=== PATIENT | female | born 1995 | race Hispanic/Latino ===

== ENCOUNTER 2021-01-12 20:13 | Emergency (ER) | payer OTHER, SELFPAY ==
[2021-01-12 20:21] VITALS: BP 111/65; PULSE 107; RESP 15; TEMP 36.6; O2SAT 97
[2021-01-12 20:42] LABS: Basophils Percent Auto 0.3 % (0.2-1.2); Eosinophils Absolute Auto 0.1 K/mm3 (0-0.3); Eosinophils Percent Auto 0.4 % (0-4.4); Hematocrit 32.2 % (37.0-47.0); Hemoglobin 10.3 g/dL (12.0-15.0); Immature Granulocyte Absolute 0.11 K/mm3 (0.00-0.031); Immature Granulocyte Percent A 0.8 % (0-0.5); Lymphocytes Percent Auto 16.3 % (18.3-44.2); Mean Corpuscular Hemoglobin 23.9 pg (26-34); Mean Corpuscular Volume 74.7 fl (80-100); Mean Platelet Volume 9.2 fl (7.4-10.4); Monocytes Absolute Auto 0.8 K/mm3 (0.1-0.6); Monocytes Percent Auto 5.9 % (2.6-8.5); Neutrophils Absolute Auto 10.3 K/mm3 (1.3-6.7); Neutrophils Percent Auto 76.3 % (45.5-73.1); Platelet Count Result 287 k/mm3 (150-375); Red Blood Count 4.31 M/mm3 (4.2-5.4); Red Cell Distribution Width 20.6 % (11.5-14.5); White Blood Count 13.5 K/mm3 (4.5-10.0)
[2021-01-12 20:54] LABS: Alanine Aminotransferase 18 U/L (4-35); Albumin Level 3.9 g/dL (3.5-5.1); Alkaline Phosphatase 81 U/L (38-126); Anion Gap 7 mmol/L (8-16); Aspartate Amino Transferase 31 U/L (14-36); Bilirubin,Total 0.2 mg/dL (0.2-1.3); Blood Urea Nitrogen 13 mg/dL (7-17); Calcium 9.1 mg/dL (8.4-10.2); Carbon Dioxide 19 mmol/L (22-30); Chloride 109 mmol/L (98-107); Estimated CRCL calculation 173 ml/min; Estimated Glomerular Filt Rate > 60; Glucose 104 mg/dL (65-105); Lipase 159 U/L (23-300); Potassium 3.4 mmol/L (3.4-5.0); Sodium 135 mmol/L (137-145)
[2021-01-12] MEDS: METOCLOPRAMIDE HCL INJ 10 MG/2 ML VIAL IV PUSH (22:10)
[2021-01-12] MEDS: SODIUM CHLORIDE 0.9% IV 1,000 ML 999 ML IV CONT (22:10)
[2021-01-12] MEDS: diphenhydrAMINE HCl INJ 50 MG/ML VIAL IV PUSH (22:10)
--- NOTE | 2021-01-12 23:08 | ED.GENADULT ---
HPI - General Adult General Chief complaint: Abdominal Pain Stated complaint: 17 weeks gestation - abd cramping Time Seen by Provider: 01/12/21 21:22 History of Present Illness HPI narrative: Patient is a 25-year-old female presents to emergency department with chief complaint of headache nausea and abdominal cramping. Patient reports she is currently 17 weeks saw her OB today for blood work and a urine test and was told that she had a urinary tract infection patient was given a prescription for Macrobid but had not eaten all day and started having a headache. Related Data Home Medications Medication Instructions Recorded Confirmed docosahexaenoic acid 200 mg capsule mg PO 12/10/20 01/01/21 Allergies Allergy/AdvReac Type Severity Reaction Status Date / Time No Known Allergies Allergy Unverified 01/12/21 20:21 Review of Systems Review of Systems: Narrative: A 10 system review of systems was completed on the patient and is negative except for what is stated in the HPI. Nursing and ancillary documentation was reviewed. [facility] Social History Social History Smoking status: Never smoker Alcohol intake: never Substance use: never Gender identity (if verbalized by the patient): Female Exam Narrative: Exam Narrative: GENERAL: Well-appearing, well-nourished, and in no acute distress. HEAD: Normocephalic, atraumatic. EYES: PERRLA and EOMI. ENT: Nares clear, no rhinorrhea or epistaxis. Mucous membranes moist. NECK: Supple. CHEST: Clear to auscultation. No respiratory distress. HEART: Regular rate and rhythm. No murmur heard. Normal peripheral pulses. ABDOMEN: Soft, nontender, nondistended, normal active bowel sounds. EXTREMITIES: Normal range of motion. No edema. SKIN: Warm, dry, no rash. NEURO: No focal deficits. Alert and oriented x3. PSYCH: Normal mood and affect. Course Course Emergency Course: Patient received IV Reglan Benadryl and IV fluids and had resolution of her symptoms. Vital Signs Vital signs: Vital Signs Temperature 36.6 C 01/12/21 20:21 Pulse Rate 107 H 01/12/21 20:21 Respiratory Rate 15 01/12/21 20:21 Blood Pressure 111/65 01/12/21 20:21 Pulse Oximetry 97 01/12/21 20:21 Temperature 36.6 C 01/12/21 20:21 Pulse Rate 107 H 01/12/21 20:21 Respiratory Rate 15 01/12/21 20:21 Blood Pressure 111/65 01/12/21 20:21 Pulse Oximetry 97 01/12/21 20:21 Medical Decision Making Vital Signs Vital Signs: Vital Signs Temperature 36.6 C 01/12/21 20:21 Pulse Rate 107 H 01/12/21 20:21 Respiratory Rate 15 01/12/21 20:21 Blood Pressure 111/65 01/12/21 20:21 Pulse Oximetry 97 01/12/21 20:21 Temperature 36.6 C 01/12/21 20:21 Pulse Rate 107 H 01/12/21 20:21 Respiratory Rate 15 01/12/21 20:21 Blood Pressure 111/65 01/12/21 20:21 Pulse Oximetry 97 01/12/21 20:21 Lab Data Result diagrams: 01/12/21 20:34 01/12/21 20:34 Labs: Lab Results 01/12/21 01/12/21 Range/Units 20:34 20:34 WBC 13.5 H (4.5-10.0) K/mm3 RBC 4.31 (4.2-5.4) M/mm3 Hgb 10.3 L (12.0-15.0) g/dL Hct 32.2 L (37.0-47.0) % MCV 74.7 L (80-100) fl MCH 23.9 L (26-34) pg MCHC 32.0 (32-36) g/dl RDW 20.6 H (11.5-14.5) % Plt Count 287 (150-375) k/mm3 MPV 9.2 (7.4-10.4) fl Immature Gran % (Auto) 0.8 H (0-0.5) % Neut % (Auto) 76.3 H (45.5-73.1) % Lymph % (Auto) 16.3 L (18.3-44.2) % [place] % (Auto) 5.9 (2.6-8.5) % Eos % (Auto) 0.4 (0-4.4) % Baso % (Auto) 0.3 (0.2-1.2) % Lymph # (Auto) 2.20 (0.9-3.2) K/mm3 [place] # (Auto) 0.8 H (0.1-0.6) K/mm3 Eos # (Auto) 0.1 (0-0.3) K/mm3 Baso # (Auto) 0.0 (0.0-0.1) K/mm3 Abs Immat Gran (auto) 0.11 H (0.00-0.031) K/mm3 Absolute Neuts (auto) 10.3 H (1.3-6.7) K/mm3 Absolute Nucleated RBC 0.0 (0.0-0.012) K/mm3 Nucleated RBC % 0.0 (0.0-0.2) % Sodium
[2021-01-12 23:26] VITALS: BP 112/64; PULSE 87; RESP 16; TEMP 36.9; O2SAT 100
== END 2021-01-12 23:27 | disposition home or self-care (01) ==
PROVIDERS: Emergency Medicine; Emergency Provider Emergency Medicine; PCP Internal Medicine
DX: R51.9 Headache, unspecified (principal)
CPT/HCPCS: 36415; 80053; 83690; 85025; 96361; 96374; 96375; 99284; J1200; J2765; J7030

== ENCOUNTER 2021-01-19 11:07 | Outpatient (CLI) | payer OTHER, SELFPAY ==
--- NOTE | ~2021-01-19 | US_ITS ---
EXAMINATION: US OB /maternal detail DATE: 01/19/2021 12:13 INDICATION: anatomic survey. TECHNIQUE: Real-time ultrasound of the pelvis was performed. COMPARISON: Ultrasound 11/20/2020 FINDINGS: There is a single living fetus in vertex presentation. The placenta is fundal and posterior, 11.8 cm from the cervix. heart rate is 155 beats per minute (bpm). The amniotic fluid index is 10.3 cm , which is normal. The following biometric data were obtained: Biparietal diameter (BPD): 4.4 cm; head circumference (HC): 15.2 cm; abdominal circumference (AC): 13 .2 cm; femur length (FL): 3.1 cm. These measurements are concordant. Estimated weight is 270 g +/- 40 g, which correlates with 80th percentile when 06/19/21 is used as estimated date of delivery. As single measurements, these parameters are each equal to the following estimated gestational ages: BPD: 19 weeks 3 days. HC: 18 weeks 2 days. AC: 18 weeks 5 days. FL: 19 weeks 4 days. estimated gestational age based solely on measurements from this exam is 19 weeks 0 days +/- 1 weeks 2 days. The cerebral ventricles, cerebellum, cisterna magna, nuchal fold, lip, and visualized portions of the spine are normal. The heart is normal. The diaphragm, stomach, kidneys, and bladder are normal. Ther e are two umbilical arteries to yield a 3-vessel cord. The cord insertion is normal. IMPRESSION: 1. Single living fetus in vertex presentation. 2. Estimated weight is 270 g +/- 40 g, which correlates with 80th percentile when 06/19/21 is u sed as estimated date of delivery. 3. Normal anatomic survey. Reviewed, dictated and finalized at location [facility]. IMPRESSION: 1. Single living fetus in vertex presentation. 2. Estimated weight is 270 g +/- 40 g, which correlates with 80th percen tile when 06/19/21 is used as estimated date of delivery. 3. Normal anatomic survey.
== END 2021-01-19 11:08 | disposition home or self-care (01) ==
PROVIDERS: PCP Internal Medicine; Visit Provider Obstetrics & Gynecology
DX: Z36.89 Encounter for other specified antenatal screening (principal); Z3A.19 19 weeks gestation of pregnancy
CPT/HCPCS: 76805

== ENCOUNTER 2021-06-03 21:04 | Inpatient (IN) | payer OTHER, SELFPAY ==
[2021-06-03 21:45] VITALS: BP 108/74; PULSE 85
[2021-06-03 22:00] VITALS: BP 101/68; PULSE 80; TEMP 36.4
[2021-06-03 22:02] LABS: Basophils Percent Auto 0.5 % (0.2-1.2); Eosinophils Absolute Auto 0.1 K/mm3 (0-0.3); Eosinophils Percent Auto 1.1 % (0-4.4); Hematocrit 34.4 % (37.0-47.0); Hemoglobin 11.6 g/dL (12.0-15.0); Immature Granulocyte Absolute 0.05 K/mm3 (0.00-0.031); Immature Granulocyte Percent A 0.6 % (0-0.5); Lymphocytes Percent Auto 29.5 % (18.3-44.2); Mean Corpuscular HGB Conc 33.7 g/dl (32-36); Mean Corpuscular Hemoglobin 29.2 pg (26-34); Mean Corpuscular Volume 86.6 fl (80-100); Mean Platelet Volume 10.6 fl (7.4-10.4); Monocytes Absolute Auto 0.6 K/mm3 (0.1-0.6); Monocytes Percent Auto 6.5 % (2.6-8.5); Neutrophils Absolute Auto 5.3 K/mm3 (1.3-6.7); Neutrophils Percent Auto 61.8 % (45.5-73.1); Platelet Count Result 249 k/mm3 (150-375); Red Blood Count 3.97 M/mm3 (4.2-5.4); Red Cell Distribution Width 14.6 % (11.5-14.5); White Blood Count 8.5 K/mm3 (4.5-10.0)
[2021-06-03 22:16] VITALS: BP 107/71; PULSE 68
[2021-06-03 23:30] VITALS: TEMP 36.6
[2021-06-04] VITALS (72 sets, daily range): BP systolic 84–169; BP diastolic 45–112; PULSE 57–102; TEMP 36.2–36.8; O2SAT 99–100; BMI 33.3
--- NOTE | 2021-06-04 00:54 | LDADM ---
This patient, David Puckett, was admitted to Labor/Delivery/Recovery 105 on 06/03/21 at 21:04. Plans for labor, pain management and were discussed with patient. Patient/family oriented to hospital policies and general routines including ID bracelet, bed and alarms, visiting hours, pain management, procedures, bathroom and other care routines, personal items, smoking policy, room service/diet and guest tray routines, security routines, and visiting hours. Patient/Family are encouraged to report perceived risks to care and to ask questions if they do not understand what they are told or what they should do. See OBIX for further documentation.
[2021-06-04] MEDS: OXYTOCIN 30 UNITS/NS 500 ML 30 UNITS/500 ML BAG 6 UNITS IV CONT (01:12)
[2021-06-04] MEDS: LACTATED RINGERS 1,000 ML 125 ML IV CONT ×3 (01:12→19:23)
--- NOTE | 2021-06-04 03:51 | WPDANESEPP ---
Anes - Eval Pre Procedure Procedure: Labor epidural Date/Time: 06/04/21 03:51 Surgeon: Woo Preop Diagnosis: Abd pain with contractions Pre Op Diagnosis: SROM Patient Data Age: 26 Gender: F Height: Weight: Last Vital Signs Temp 98.1 F 06/04/21 03:00 Pulse 61 06/04/21 03:45 BP 104/67 06/04/21 03:45 Allergies Allergy/AdvReac Type Severity Reaction Status Date / Time No Known Allergies Allergy Verified 06/02/21 14:01 Home Medications Medication Instructions Recorded Confirmed Type docosahexaenoic acid 200 mg capsule mg PO 12/10/20 01/29/21 History ergocalciferol (vitamin D2) 1,250 1,250 mcg PO WEEKLY #12 cap 01/12/21 01/29/21 Rx mcg (50,000 unit) capsule ferrous sulfate 325 mg (65 mg 325 mg PO BID #60 tablet 01/12/21 01/29/21 Rx iron) tablet theodore.stocking,thigh,reg,med #2 ea 05/19/21 05/19/21 Rx Laboratory Tests 06/03/21 06/03/21 06/03/21 21:57 21:57 21:57 WBC 8.5 K/mm3 K/mm3 (4.5-10.0) RBC 3.97 M/mm3 L M/mm3 (4.2-5.4) Hgb 11.6 g/dL L g/dL (12.0-15.0) Hct 34.4 % L % (37.0-47.0) MCV 86.6 fl fl (80-100) MCH 29.2 pg pg (26-34) MCHC 33.7 g/dl g/dl (32-36) RDW 14.6 % H % (11.5-14.5) Plt Count 249 k/mm3 k/mm3 (150-375) MPV 10.6 fl H fl (7.4-10.4) Immature Gran % (Auto) 0.6 % H % (0-0.5) Neut % (Auto) 61.8 % % (45.5-73.1) Lymph % (Auto) 29.5 % % (18.3-44.2) [place] % (Auto) 6.5 % % (2.6-8.5) Eos % (Auto) 1.1 % % (0-4.4) Baso % (Auto) 0.5 % % (0.2-1.2) Lymph # (Auto) 2.50 K/mm3 K/mm3 (0.9-3.2) [place] # (Auto) 0.6 K/mm3 K/mm3 (0.1-0.6) Eos # (Auto) 0.1 K/mm3 K/mm3 (0-0.3) Baso # (Auto) 0.0 K/mm3 K/mm3 (0.0-0.1) Abs Immat Gran (auto) 0.05 K/mm3 H K/mm3 (0.00-0.031) Absolute Neuts (auto) 5.3 K/mm3 K/mm3 (1.3-6.7) Absolute Nucleated RBC 0.0 K/mm3 K/mm3 (0.0-0.012) Nucleated RBC % 0.0 % % (0.0-0.2) RPR Pending Blood Type O Positive Antibody Screen Negative Patient hx anesthesia problems: none Family hx anesthesia problems: none PMFSH Past Medical History Medical History Anemia Obesity Family History Family History Other No pertinent family history Social History Social History Smoking status: Never smoker Alcohol intake: never Substance use: never Gender identity (if verbalized by the patient): Female Spiritual care concerns: No Exam Day of Procedure 06/04/21 03:51 Patient weight: obese Airway: Mallampati scale class II Neurological: alert and oriented
--- NOTE | 2021-06-04 09:59 | PM.IMHP ---
H&P: HPI History of Present Illness Date/Time: 06/04/21 09:59 The patient is a 26-year-old LMP 09/07/2020 currently 37 weeks 6 days gestation with IKER 06/19/2021. Patient is dated by an ultrasound on 11/20/2020 at 9 weeks gestation. Patient presents to Labor and delivery with complaints of leakage of fluid. Last night at approximately 8:15 p.m., patient reports large gush of clear fluid. She reported contractions approximately 2 days earlier, however, none prior to rupture of membranes. Currently, patient still denies any contractions. Also denies any vaginal bleeding. Reports good movement. Upon presentation to labor and delivery, patient was noted to be grossly ruptured and decision was made to admit patient to labor and delivery. Chief Complaint: PROM Review of Systems Review of Systems: All systems reviewed & are unremarkable except as noted in HPI and below Constitutional: Constitutional: Reports as per HPI, Reports no additional constitutional complaints, Denies chills, Denies fever(s), Denies headache(s) and Denies night sweats Eyes: Eyes: Reports as per HPI and Reports no additional eye complaints ENT: Reports system reviewed and no additional complaints, except as documented, Reports as per HPI, Reports Normal hearing present and Denies headache(s) Cardiovascular: Cardiovascular: Reports as per HPI, Reports no additional cardiovascular complaints, Denies chest pain and Denies dyspnea Respiratory: Respiratory: Reports as per HPI, Reports no additional respiratory complaints, Denies cough and Denies dyspnea Gastrointestinal: Gastrointestinal: Reports as per HPI, Reports no additional gastrointestinal complaints, Denies abdominal pain, Denies change in bowel habits, Denies change in stool character, Denies nausea and Denies vomiting Genitourinary: Genitourinary: Reports no additional female genitourinary complaints, Reports as per HPI, Denies abnormal vaginal bleeding, Denies genital lesions, Denies hot flashes, Denies dyspareunia, Denies pelvic pain, Denies sexual dysfunction, Denies urinary incontinence, Denies vaginal discharge, Denies vaginal dryness and Denies vaginal odor Musculoskeletal: Musculoskeletal: Reports no additional musculoskeletal complaints and Reports as per HPI Integumentary/Breasts: Skin/Breast: Reports system reviewed and no additional complaints, except as docu, Reports as per HPI, Denies breast pain and Denies nipple discharge Neurologic: Reports system reviewed and no additional complaints, except as documented, Reports as per HPI, Reports Normal hearing present and Denies headache(s) Psychiatric: Psychiatric: Reports no additional psychiatric complaints, Reports as per HPI, Denies anxiety and Denies depression Endocrine: Endocrine: Reports no additional endocrine complaints and Reports as per HPI Hematologic/Lymphatic: Hematologic/Lymphatic: Reports no additional hematologic/lymphatic complaints and Reports as per HPI Allergic/Immunologic: Allergic/Immunologic: Reports no additional allergic/immunologic complaints and Reports as per HPI PMFSH Past Medical History Medical History Anemia Obesity Family History Family History Other No pertinent family history Social History Social History Smoking status: Never smoker Alcohol intake: never Substance use: never Gender identity (if verbalized by the patient): Female Spiritual care concerns: No Meds Home Medications and Allergies Home Medications Medication Instructions Recorded Confirmed Type docosahexaenoic acid 200 mg capsule 200 mg PO DAILY 12/10/20 06/04/21 History ergocalciferol (vitamin D2) 1,250 1,250 mcg PO WEEKLY #12 cap 01/12/21 06/04/21 Rx mcg (50,000 unit) capsule ferrous sulfate 325 mg (65 mg 325 mg PO BID #60 tablet 01/12/21 06/04/21 Rx
[2021-06-04 13:14] LABS: Rapid Plasma Reagin Non-Reactive (NonReactive)
[2021-06-04] MEDS: AMPICILLIN 2 GM/NS 100 ML 2 GM/100 ML BAG IVPB (14:34)
--- NOTE | 2021-06-04 16:07 | PM.OBPNLAB ---
Pain Control Date/time seen: 06/04/21 16:07 Pain control: tolerating well Pelvic Exam Dilation (cm): 3 Effacement (%): 60 station: -2 Amniotic membrane status: Ruptured Comments: IUPS placed Contractions Monitor mode: External Contraction frequency: 3 Contraction pattern: Regular Contraction phase: Resting Contraction intensity: Moderate Status status: Category l Assessment and Plan Pitocin rate (mU/min): 16 Assessment: other (augmentation ongoing after PROM) Plan: continuous present management
[2021-06-04] MEDS: AMPICILLIN 1 GM/NS 50 ML 1 GM/50 ML BAG IVPB ×2 (18:25→22:24)
[2021-06-05] VITALS (99 sets, daily range): BP systolic 91–135; BP diastolic 54–91; PULSE 59–147; RESP 14–18; TEMP 36.4–36.9; O2SAT 96–100
[2021-06-05] MEDS: LACTATED RINGERS 1,000 ML 125 ML IV CONT (00:09)
[2021-06-05] MEDS: AMPICILLIN 1 GM/NS 50 ML 1 GM/50 ML BAG IVPB (02:30)
[2021-06-05] MEDS: OXYTOCIN 30 UNITS/NS 500 ML 30 UNITS/500 ML BAG 6 UNITS IV CONT (03:07)
[2021-06-05] MEDS: METHYLERGONOVINE MALEATE 0.2 MG/ML VIAL IM (04:30)
[2021-06-05] MEDS: OXYTOCIN 30 UNITS/NS 500 ML 30 UNITS/500 ML BAG 125 UNITS IV CONT (04:47)
[2021-06-05] MEDS: ONDANSETRON INJ 4 MG/2 ML VIAL IV PUSH (04:47)
--- NOTE | 2021-06-05 04:55 | PM.OBPRVD ---
OB - Delivery Note Procedure Delivery date: 06/05/21 Procedure: events: Labor Augmentation and Prolonged Rupture of Membrane Intrapartal events: Prolonged Labor > 20 hours Delivery augmentation: pitocin Delivery monitor: external FHT and internal uterine Route of delivery: Laceration Description: Vaginal - 2nd Degree (bilateral) Delivery repair: vicryl (2-0) Specimen: No Quantitative Blood Loss (ml): 614 Anesthesia type: Epidural Disposition: floor Baby Date of : 06/05/21 Time of : 04:11 Weeks of gestation at delivery: 38 gender: Male Weight (pounds): 7 Weight (ounces): 0 presentation: vertex position: Right Occiput Anterior cord vessel description: 3 Vessels and Clamped/Cut score one minute: 9 score five minutes: 9
[2021-06-05] MEDS: WITCH HAZEL 40 PADS 1 PAD TOPICAL (07:53)
[2021-06-05] MEDS: IBUPROFEN 600 MG TABLET PO ×2 (07:53→16:12)
[2021-06-05] MEDS: BENZOCAINE 20% AER SPR (*SP) 56 GM CAN 1 SPRAY TOPICAL (07:53)
--- NOTE | 2021-06-05 17:24 | PC.NURSE ---
0807 Pt admitted to room 282 per wheelchair from labor and delivery after vaginal delivery today at [address]go [address] Dr. Berkowitz. Mother is a and is choosing to breast feed . FOB present. Couple oriented to room, staffing and procedures; admission folder reviewed. Pt's VSS and assessment WNL.
[2021-06-06] MEDS: IBUPROFEN 600 MG TABLET PO ×3 (04:06→17:32)
[2021-06-06 05:32] LABS: Hematocrit 27.4 % (37.0-47.0); Hemoglobin 9.3 g/dL (12.0-15.0)
[2021-06-06 08:35] VITALS: BP 94/63; PULSE 77; RESP 18; TEMP 36.7; O2SAT 99
[2021-06-06] MEDS: MULTIVIT/MIN/PREN/FOL AC/IRON TABLET 1 TAB PO (09:55)
[2021-06-06] MEDS: DOCUSATE SODIUM 100 MG CAPSULE PO ×2 (09:57→17:32)
[2021-06-06] MEDS: POLYSACCHARIDE IRON COMPLEX 150 MG CAPSULE PO ×2 (09:58→17:32)
--- NOTE | 2021-06-06 10:20 | P.PNOB_ITS ---
OB - PN: Subj Subjective Date/time seen: 06/06/21 10:20 Patient comments: no complaints, pain well controlled and other (Lochia similar to menses. No CP, SOB, dizziness) [place] baby status: doing well OB - PN: Obj Data Labs CBC & Chem 7: 06/06/21 03:56 Labs: Laboratory Results - last 24 hr 06/06/21 03:56 Hgb 9.3 L Hct 27.4 L OB - PN A/P Assessment and Plan (1) Anemia: Code(s): D64.9 - Anemia, unspecified Status: Inactive Assessment and Plan: secondary to blood loss at delivery, asymptomatic. Vital signs normal and stable Plan day: 1 (s/p vaginal delivery, doing well) Plan: routine care Time Spent With Patient Time: Total time spent is greater than 50% in coordination of care (as documented) at patient's floor/unit and/or counseling patient: Time with patient: less than 15 minutes Exam Const: General: no acute distress GI: Inspection: other (Fundus firm and nontender at umbilicus) GI Palp: Yes Soft to palpation and No Tenderness to palpation present (GI) Extrem: General: no edema
[2021-06-06 19:15] VITALS: BP 94/59; PULSE 77; RESP 16; TEMP 37
--- NOTE | 2021-06-07 07:42 | PM.OBPNVD ---
OB - PN: Subj Subjective Date/time seen: 06/07/21 07:42 She is ambulating well. Patient comments: pain well controlled, tolerating diet and other (Decreasing lochia.) [place] baby status: doing well and nursing well [place] feeding status: exclusively breast feeding OB - PN: Obj Data Labs CBC & Chem 7: 06/06/21 03:56 OB - PN A/P Plan day: 1 Plan: routine care Comments: Patient doing well. Desires to go home. Discussed discharge precautions. Time Spent With Patient Time: Total time spent is greater than 50% in coordination of care (as documented) at patient's floor/unit and/or counseling patient: Exam Psych: Affect: normal affect Other: Abd: fundus firm below umbilicus, nontender Perineum: healing Ext: nontender
--- NOTE | 2021-06-07 07:43 | PM.OBDSVD ---
DS: Admitting Diagnosis Admitting Diagnosis Premature rupture of membranes DS: Discharge Diagnosis Discharge Diagnosis (1) Delivery normal: Code(s): O80 - Encounter for full-term uncomplicated delivery Status: Acute OB - DS: Summary Hospital Course Hospital Course: Patient admitted on 06/04 with premature rupture of membranes. She was induced with Pitocin. She had a subsequent vaginal delivery. Post she did well. She had adequate pain control. She was ambulating well. Lochia mild. She was discharged home with precautions. OB Procedures : Ultrasound OB Procedures Intrapartum: Spontaneous Vag Delivery OB Procedures: : None Peripartum Data Infant Delivery Method: Natural Vaginal Laceration Description: Vaginal - 2nd Degree complications: none Status at Discharge Functional status at discharge: independent ambulation Time Spent with Patient Time attestation: Total time spent providing and/or coordinating discharge services: Exam Const: General: cooperative Orientation/consciousness: oriented to person, oriented to place and oriented to time HENMT: General nose exam: Normal external nose present Eyes: General: appearance normal, both eyes and all related structures Resp: Effort & Inspection: normal respiratory effort GI: Inspection: normal to inspection : External Female Exam: normal external appearance Skin: General skin exam: normal color Neuro: General: oriented to person, oriented to place and oriented to time Extrem: General: normal to inspection and no calf tenderness Psych: Appearance: grossly normal Mental Status: mental status grossly normal Discharge Plan Discharge Attending physician on discharge: Paxton Carrasco Consulting providers: Alyse Berkowitz Discharging Clinician: Paxton Carrasco Anticipated Discharge Date/Time: 06/07/21 11:02 Patient Disposition: Home, Self-Care Activity: may shower and pelvic rest Diet: regular Wound Care Instructions: follow printed instructions Discharge Instructions: Education: Mom and Baby Guide and Preeclampsia Handout Given to: Mother Follow-Up: Call your delivering provider's office for an appointment to be seen in: 4 Weeks Mom and baby should come to the [facility] for the follow-up appointment. Appointment Date/Time: June 09, 2021 at 8:00 am What to expect at your follow-up visit: Physical Assessment Call [phone] if you are unable to keep your appointment time. BREAST CARE: * Wear a snug supportive bra. * For engorgement discomfort: Breast Feeding: * Apply warm moist washcloths * Express milk as needed to relieve engorgement * Wear loose clothing * For sore nipples: * Identify correct latch-on * Apply warm moist washcloths before and after nursing * Air dry nipples after nursing * May apply Lansinoh cream to nipples EPISIOTOMY/PERINEAL CARE: * Until bleeding stops, use your quan bottle after urinating * Change your pad frequently throughout the day * You may take sitz baths several times a day (fill your bathtub with warm water and soak for 20 minutes.) Do NOT bathe in the water * No tub baths until seen by your physician - You may shower ACTIVITY: * Rest as much as possible. * Do not exercise or lift anything heavier than your baby (such as laundry or other children.) * Avoid stairs or driving as much as possible. * Do not put anything into the vagina. No douching, tampons, or sexual activity until seen by physician. NOTIFY PHYSICIAN IF YOU HAVE ANY QUESTIONS OR IF ANY OF THE FOLLOWING SYMPTOMS OCCUR: * If your episiotomy or stitches become red, swollen, or more painful than what you have experienced in the hospital. * If your vaginal bleeding becomes foul smelling. * If your vaginal bleeding becomes more heavy than a period or if your bleeding changes from pink to brig
[2021-06-07 08:20] VITALS: BP 117/78; PULSE 87; RESP 18; TEMP 36.7
[2021-06-07] MEDS: MULTIVIT/MIN/PREN/FOL AC/IRON TABLET 1 TAB PO (08:23)
[2021-06-07] MEDS: POLYSACCHARIDE IRON COMPLEX 150 MG CAPSULE PO (08:23)
[2021-06-07] MEDS: DOCUSATE SODIUM 100 MG CAPSULE PO (08:23)
[2021-06-07] MEDS: IBUPROFEN 600 MG TABLET PO (08:23)
--- NOTE | 2021-06-07 09:00 | PC.NURSE ---
Consult with pt., mother reports infant will latch and nurse for short periods then fall asleep while at breast. Mother has supplemented after some feedings. Assured mother sleepiness for the first few days is normal and waking infant each feeding and keeping awake is needed to increase intake. Reviewed infant feeding cues, frequencies, duration of feedings, feeding elimination flow sheet, and signs of adequate intake. Demonstrated stimulation techniques to wake for feeding. Assisted with infant to breast. Reviewed positioning/alignment in cross cradle, holding breast in U hold and guided asymmetrical latch on. was able to latch correctly. Infant nursed eagerly with bursts of steady draws and occasional swallowing followed with long pausing and falling to sleep. Advised to stimulate while feeding to keep awake, for increased intake, stimulation of supply and assist with maintaining deep latch. Discussed the difference of effective vs ineffective nursing. Advised this feeding observed is not awake and nursing effectively with minimal transfer of milk. Reviewed signs of a correct latch, effective nursing and suck swallow ratio. Infant was would slip to shallow latch, demonstrated how to adjust latch more deeply while feeding. Mother was able to adjust latch reporting less tenderness. Mother will begin to supplement 20-25 mls after each feeding and pump for 5-10 minutes after each feeding/attempt. Discussed may want to increase supplementation to satisfy, advised to increase as infant desires. Mother will pump on feeding schedule, increasing session to 20 minutes if pumping every 4 hours. Reviewed when infant is feeding effectively he may want to decrease supplementation. Advised not to discontinue supplement until a feeding pre/post evaluation is done by follow up, ICP or LC. Mother to independently latch with appropriate positioning/alignment. She denies any nipple discomfort, is feeding as required and waking to feed if needed. is currently meeting outcomes for weight, output, jaundice and feeding frequencies. Mother states she feels confident to continue current feeding plan of supplementation after breastfeedings at home. Reviewed transition to breast milk, signs of adequate intake, and engorgement/relief. Instructed to call ICP if intake/output less than required. Reviewed regular medications mother is taking. Information provided per Christina. Reviewed community resources on the [facility] website and in the Mom/Baby guide. Information on outpatient services provided. Mother has no further questions at this time.
[2021-06-09 08:02] VITALS: BP 131/81; PULSE 88; RESP 16; TEMP 37.7; O2SAT 99
== END 2021-06-07 11:05 | disposition home or self-care (01) | DRG 806 ==
LOC: ANHLDR 22:18 → ANHOB2 06-07 09:27 → ANHLDR 06-07 16:30 → ANHOB2 06-07 16:30
PROVIDERS: Admitting Provider Obstetrics & Gynecology; PCP Internal Medicine; Visit Provider Obstetrics & Gynecology
DX: O42.92 Full-term premature rupture of membranes, unspecified as to length of time between rupture and onset of labor (principal); D62 Acute posthemorrhagic anemia; Z37.0 Single live birth; Z3A.38 38 weeks gestation of pregnancy; O99.214 Obesity complicating childbirth; E66.9 Obesity, unspecified; O99.02 Anemia complicating childbirth; D64.9 Anemia, unspecified; O70.1 Second degree perineal laceration during delivery
CPT/HCPCS: 36415; 85014; 85018; 85025; 86592; 86850; 86900; 86901; A9270; J0290; J2210; J2405; J2590; J2795; J7120

== ENCOUNTER 2021-10-18 15:12 | Outpatient (CLI) | payer OTHER, SELFPAY ==
--- NOTE | ~2021-10-18 | US_ITS ---
US OB <= 14 weeks fetus DATE: 10/18/2021 15:50 INDICATION: Gestational viability and age determination TECHNIQUE: Real-time imaging and Doppler analysis. Transabdominal approach COMPARISON: 01/19/2021 obstetrical ultrasound FINDINGS: The uterus measures 13.7 cm height, 6.1 cm AP and 8.8 cm transverse dimension. There is a live colvin intrauterine gestation. Mellen-rump length averages 5.21 cm, consistent with estimated gestational age of 11 weeks 6 days +/- 1 week, IKER of 05/03/2022. The heart rate 167 bpm. Right ovary measures 4.0 x 2.7 x 1.6 cm. The left ovary is not visualized. No pelvic mass or abnormal free pelvic fluid collection is detected. IMPRESSION: Estimated gestational age of 11 weeks 6 days +/- 1 week; IKER: 05/03/2022 Reviewed, dictated and finalized at [facility]. Reviewed, dictated and finalized at location [facility]. TER FOREMAN IMPRESSION: Estimated gestational age of 11 weeks 6 days +/- 1 week; IKER: 2021
== END 2021-10-18 15:13 | disposition home or self-care (01) ==
PROVIDERS: PCP Internal Medicine; Visit Provider Student in an Organized Health Care Education/Training Program
DX: Z36.9 Encounter for antenatal screening, unspecified (principal); Z3A.11 11 weeks gestation of pregnancy
CPT/HCPCS: 76801

== ENCOUNTER 2022-04-26 09:09 | Inpatient (IN) | payer OTHER, SELFPAY ==
[2022-04-26] VITALS (97 sets, daily range): BP systolic 83–128; BP diastolic 22–87; PULSE 67–116; RESP 18; TEMP 36.4–37; O2SAT 92–100; BMI 31.6
--- NOTE | 2022-04-26 09:09 | LDADM ---
This patient, David Puckett, was admitted to Labor/Delivery/Recovery 107 on 04/26/22 at 09:09. Plans for labor, pain management and were discussed with patient. Patient/family oriented to hospital policies and general routines including ID bracelet, bed and alarms, visiting hours, pain management, procedures, bathroom and other care routines, personal items, smoking policy, room service/diet and guest tray routines, security routines, and visiting hours. Patient/Family are encouraged to report perceived risks to care and to ask questions if they do not understand what they are told or what they should do. See OBIX for further documentation.
[2022-04-26] MEDS: LACTATED RINGERS 1,000 ML 125 ML IV CONT ×3 (10:19→12:30)
[2022-04-26 10:22] LABS: Basophils Percent Auto 0.5 % (0.2-1.2); Eosinophils Absolute Auto 0.1 K/mm3 (0-0.3); Eosinophils Percent Auto 0.6 % (0-4.4); Hematocrit 36.2 % (37.0-47.0); Hemoglobin 11.8 g/dL (12.0-15.0); Immature Granulocyte Absolute 0.13 K/mm3 (0.00-0.031); Immature Granulocyte Percent A 1.6 % (0-0.5); Lymphocytes Absolute Auto 2.01 K/mm3 (0.9-3.2); Lymphocytes Percent Auto 24.1 % (18.3-44.2); Mean Corpuscular HGB Conc 32.6 g/dl (32-36); Mean Corpuscular Hemoglobin 28.4 pg (26-34); Mean Platelet Volume 10.2 fl (7.4-10.4); Monocytes Absolute Auto 0.4 K/mm3 (0.1-0.6); Neutrophils Absolute Auto 5.7 K/mm3 (1.3-6.7); Neutrophils Percent Auto 68.2 % (45.5-73.1); Platelet Count Result 259 k/mm3 (150-375); Red Blood Count 4.16 M/mm3 (4.2-5.4); White Blood Count 8.3 K/mm3 (4.5-10.0)
--- NOTE | 2022-04-26 10:49 | P.PNAN_ITS ---
Anes - Eval Pre Procedure Procedure: labor epidural Date/Time: 04/26/22 10:49 Surgeon: pelon Preop Diagnosis: pain during labor Pre Op Diagnosis: Leaking Patient Data Age: 27 Gender: F Height: 1.7 m Weight: 91.5 kg Last Vital Signs Pulse 83 04/26/22 10:46 BP 100/66 04/26/22 10:46 O2 Del Method Room Air 04/26/22 10:25 Allergies Allergy/AdvReac Type Severity Reaction Status Date / Time No Known Allergies Allergy Verified 04/20/22 14:02 Home Medications Medication Instructions Recorded Confirmed Type docosahexaenoic acid 200 mg 200 mg PO DAILY 12/10/20 06/04/21 History capsule ( DHA) cholecalciferol (vitamin D3) 25 25 mcg PO DAILY 01/27/22 History mcg (1,000 unit) capsule ferrous sulfate 325 mg (65 mg 325 mg PO DAILY #90 tabs 03/02/22 Rx iron) tablet Laboratory Tests 04/26/22 04/26/22 10:13 10:13 WBC 8.3 K/mm3 K/mm3 (4.5-10.0) RBC 4.16 M/mm3 L M/mm3 (4.2-5.4) Hgb 11.8 g/dL L g/dL (12.0-15.0) Hct 36.2 % L % (37.0-47.0) MCV 87.0 fl fl (80-100) MCH 28.4 pg pg (26-34) MCHC 32.6 g/dl g/dl (32-36) RDW 22.0 % H % (11.5-14.5) Plt Count 259 k/mm3 k/mm3 (150-375) MPV 10.2 fl fl (7.4-10.4) Immature Gran % (Auto) 1.6 % H % (0-0.5) Neut % (Auto) 68.2 % % (45.5-73.1) Lymph % (Auto) 24.1 % % (18.3-44.2) [place] % (Auto) 5.0 % % (2.6-8.5) Eos % (Auto) 0.6 % % (0-4.4) Baso % (Auto) 0.5 % % (0.2-1.2) Lymph # (Auto) 2.01 K/mm3 K/mm3 (0.9-3.2) [place] # (Auto) 0.4 K/mm3 K/mm3 (0.1-0.6) Eos # (Auto) 0.1 K/mm3 K/mm3 (0-0.3) Baso # (Auto) 0.0 K/mm3 K/mm3 (0.0-0.1) Abs Immat Gran (auto) 0.13 K/mm3 H K/mm3 (0.00-0.031) Absolute Neuts (auto) 5.7 K/mm3 K/mm3 (1.3-6.7) Absolute Nucleated RBC 0.0 K/mm3 K/mm3 (0.0-0.012) Nucleated RBC % 0.0 % % (0.0-0.2) RPR Pending Patient hx anesthesia problems: none Family hx anesthesia problems: none Results Review: All pre-operative results and documents have been reviewed as part of the pre- operative evaluation. [facility] Past Medical History Medical History Anemia History of vaginal delivery 06/05/21 Obesity Family History Family History Other No pertinent family history Social History Social History Smoking status: Never smoker Second hand tobacco smoke exposure: No Alcohol intake: never Substance use: never Gender identity (if verbalized by the patient): Female Spiritual care concerns: No Exam Day of Procedure 04/26/22 10:49
[2022-04-26 11:23] LABS: Glucose Point of Care 59 mg/dl (65-105)
--- NOTE | 2022-04-26 12:19 | PM.IMHP ---
H&P: HPI History of Present Illness Date/Time: 04/26/22 12:19 Chief Complaint: Leakage of fluid Narrative: Patient is 27-year-old LMP uncertain, currently 39 weeks gestation with IKER 05/03/2022. Patient is dated by ultrasound on 10/18/2021 at 11 weeks gestation. Patient reports intermittent contractions for past 2 days and reports experiencing a large gush of clear fluid this morning at approximately 7:30 a.m. Patient denies any vaginal bleeding. Reports good movement. Upon presentation to labor and delivery, patient was noted to be grossly ruptured and in labor. Decision was made to admit patient to labor and delivery. Review of Systems Review of Systems: All systems reviewed & are unremarkable except as noted in HPI and below Constitutional: Constitutional: Reports as per HPI and Reports no additional constitutional complaints Eyes: Eyes: Reports as per HPI and Reports no additional eye complaints ENT: Reports system reviewed and no additional complaints, except as documented and Reports as per HPI Cardiovascular: Cardiovascular: Reports as per HPI and Reports no additional cardiovascular complaints Respiratory: Respiratory: Reports as per HPI and Reports no additional respiratory complaints Gastrointestinal: Gastrointestinal: Reports as per HPI and Reports no additional gastrointestinal complaints Genitourinary: Genitourinary: Reports no additional female genitourinary complaints and Reports as per HPI Musculoskeletal: Musculoskeletal: Reports no additional musculoskeletal complaints and Reports as per HPI Integumentary/Breasts: Skin/Breast: Reports system reviewed and no additional complaints, except as docu and Reports as per HPI Neurologic: Reports system reviewed and no additional complaints, except as documented and Reports as per HPI Psychiatric: Psychiatric: Reports no additional psychiatric complaints and Reports as per HPI Endocrine: Endocrine: Reports no additional endocrine complaints and Reports as per HPI Hematologic/Lymphatic: Hematologic/Lymphatic: Reports no additional hematologic/lymphatic complaints and Reports as per HPI Allergic/Immunologic: Allergic/Immunologic: Reports no additional allergic/immunologic complaints and Reports as per HPI PMF Past Medical History Medical History Anemia History of vaginal delivery 06/05/21 Obesity Family History Family History Other No pertinent family history Social History Social History Smoking status: Never smoker Second hand tobacco smoke exposure: No Alcohol intake: never Substance use: never Gender identity (if verbalized by the patient): Female Spiritual care concerns: No Meds Home Medications and Allergies Home Medications Medication Instructions Recorded Confirmed Type docosahexaenoic acid 200 mg 200 mg PO DAILY 12/10/20 04/26/22 History capsule ( DHA) cholecalciferol (vitamin D3) 25 25 mcg PO DAILY 01/27/22 04/26/22 History mcg (1,000 unit) capsule ferrous sulfate 325 mg (65 mg 325 mg PO DAILY #90 tabs 03/02/22 04/26/22 Rx iron) tablet Allergies Allergy/AdvReac Type Severity Reaction Status Date / Time No Known Allergies Allergy Verified 04/20/22 14:02 Vital Signs Vital Signs - 24 hr 04/26/22 09:46 04/26/22 10:01 04/26/22 10:16 Temperature Pulse Rate 94 88 89 Blood Pressure 107/67 109/66 104/66 Pulse Oximetry Oxygen Delivery 04/26/22 10:31 04/26/22 10:46 04/26/22 10:55 Temperature Pulse Rate 81 83 89 Blood Pressure 101/63 100/66 106/83 Pulse Oximetry Oxygen Delivery 04/26/22 10:56 04/26/22 10:57 04/26/22 10:59 Temperature Pulse Rate 94 87 Blood Pressure 114/82 113/77 Pulse Oximetry 100 Oxygen Delivery 04/26/22 11:01 04/26/22 11:03 04/26/22 11:
[2022-04-26] MEDS: OXYTOCIN 30 UNITS/NS 500 ML 30 UNITS/500 ML BAG IV CONT (12:30)
--- NOTE | 2022-04-26 12:31 | WPDHPUPDATE1 ---
History and Physical Update Update Date/Time: 04/26/22 12:31 History and Physical has been reviewed, including an updated exam of the patient. There are NO changes in the patient's condition. Risks, benefits, and alternatives have been discussed and questions answered. Patient agrees to proceed with procedure.
--- NOTE | 2022-04-26 15:21 | PM.OBPRVD ---
OB - Delivery Note Procedure Delivery date: 04/26/22 Procedure: The patient is 27-year-old now who presented to labor and delivery on the morning of 04/26/2022 at 39 weeks gestation in labor. Patient reported contractions over the previous two days and experienced spontaneous rupture of membranes this morning at approximately 7:30 a.m. Clear amniotic fluid was noted. Upon presentation to labor and delivery, patient was noted to be 5 cm dilated and grossly ruptured. She was admitted to labor and delivery. Patient was uncomfortable and requested an epidural for pain management. Epidural placement was attempted, however, catheter was partially noted to be in the intrathecal space. Anesthesia continued to make adjustments and provide boluses carefully throughout the remainder of labor course and delivery. A forebag was noted and ruptured. Pitocin was started for labor augmentation. Patient made progressive cervical change and was noted to be fully dilated at 2:44 p.m. Patient was encouraged to push and found be pushing well. She was prepped and draped for delivery. At 2:59 p.m., patient delivered head atraumatically without difficulty in LIANNA presentation. Occiput restituted to maternal right side. With subsequent push, the 's neck, shoulders, and rest of body delivered without difficulty. A body cord was noted to be wrapped across infant's right shoulder and torso. Cord was reduced. was crying spontaneously. 's nose and mouth were suctioned with bulb suction. Infant was placed on maternal abdomen where care was assumed by awaiting nursing staff. Delayed cord clamping was performed for approximately 60 seconds. Cord was clamped and cut. A segment of cord was collected for cord gases. The placenta was delivered spontaneously and intact. Uterine fundus was noted to be firm with massage. On inspection, a small right periurethral laceration was noted. Laceration was oozing minimally. Pressure was applied, however, oozing persisted. Approximately 5 cc of 1% lidocaine was administered for local analgesia. Laceration was repaired with 3-0 Vicryl in the usual fashion. Excellent hemostasis was noted. Estimated blood loss for entire delivery was 150 cc. The infant was a liveborn female , Apgars 9 and 9, weighing 8 lb 2 oz. Both mother and baby doing well at end of delivery. Delivery augmentation: Pitocin Delivery monitor: External FHT and External Uterine Route of delivery: Laceration Description: Periurethral (right) Delivery repair: vicryl (3-0 vicryl) Specimen: Yes (cord blood and cord gases) Quantitative Blood Loss (ml): 150 Anesthesia type: Epidural (however, catheter was partially in intrathecal space) Disposition: Floor Complications: No immediate complications Baby Date of : 04/26/22 Time of : 14:59 Weeks of gestation at delivery: 39 gender: Female Weight (pounds): 8 Weight (ounces): 2 presentation: vertex position: Right Occiput Anterior Placenta delivery description: Spontaneous Cord Vessel Description: 3 Vessels, Delayed Cord Clamping (x60s) and Around Body score one minute: 9 score five minutes: 9 AMG Delivery Billing Delivery Delivery: Delivery Charge
[2022-04-26] MEDS: OXYTOCIN 30 UNITS/NS 500 ML 30 UNITS/500 ML BAG 125 UNITS IV CONT (15:30)
[2022-04-26] MEDS: HYDROcodone/acetaminophen (*CRX) 5-325 MG TABLET 1 TAB PO (15:50)
[2022-04-26] MEDS: BENZOCAINE 20% AER SPR (*SP) 56 GM CAN 1 SPRAY TOPICAL (15:50)
[2022-04-26] MEDS: WITCH HAZEL 40 PADS 1 PAD TOPICAL (15:50)
[2022-04-26] MEDS: COSYNTROPIN 0.25 MG/ML VIAL 1 MG IV PUSH (16:45)
[2022-04-26] MEDS: ACETAMINOPHEN/BUTALBITAL/CAFFEINE 325-50-40 MG TABLET (FIORICET) 1 TAB (17:30)
--- NOTE | 2022-04-26 18:41 | ADMGEN ---
This patient, David Puckett, was admitted to OB 2nd Floor Room 281-00. Patient/family oriented to hospital policies and general routines including ID bracelet, bed and alarms, visiting hours, pain management, procedures, bathroom and other care routines, personal items, smoking policy, room service/diet, and visiting hours. Information on how to activate the Rapid Response Team has been discussed. Patient/Family are encouraged to report perceived risks to care and to ask questions if they do not understand what they are told or what they should do.
[2022-04-26] MEDS: ACETAMINOPHEN/BUTALBITAL/CAFFEINE 325-50-40 MG TABLET (FIORICET) 1 TAB PO (21:42)
[2022-04-26] MEDS: IBUPROFEN 600 MG TABLET PO (21:43)
[2022-04-27] MEDS: ACETAMINOPHEN/BUTALBITAL/CAFFEINE 325-50-40 MG TABLET (FIORICET) 1 TAB PO ×5 (01:32→23:00)
[2022-04-27 04:01] VITALS: BP 105/48; PULSE 63; RESP 16; TEMP 36.5
[2022-04-27 04:58] LABS: Hematocrit 33.6 % (37.0-47.0)
[2022-04-27] MEDS: IBUPROFEN 600 MG TABLET PO ×3 (05:26→22:59)
--- NOTE | 2022-04-27 07:16 | WPDHPUPDATE1 ---
History and Physical Update Update Date/Time: 04/27/22 07:16 History and Physical has been reviewed, including an updated exam of the patient. There are NO changes in the patient's condition. Risks, benefits, and alternatives have been discussed and questions answered. Patient agrees to proceed with procedure.
[2022-04-27 08:20] VITALS: BP 99/60; PULSE 62; RESP 18; TEMP 36.3; O2SAT 100
--- NOTE | 2022-04-27 09:08 | P.PNOB_ITS ---
OB - PN: Subj Subjective Date/time seen: 04/27/22 09:08 Interval history: she has some neck pain and back pain is better with heating pad and ice pack hasn't walked around much due to discomfort yesterday but improved this am. Patient comments: pain well controlled, tolerating diet and other (Decreasing lochia.) [place] baby status: doing well OB - PN: Obj Data Labs CBC & Chem 7: 04/27/22 03:38 Labs: Laboratory Results - last 24 hr 04/26/22 04/26/22 04/26/22 10:13 10:13 11:07 WBC 8.3 RBC 4.16 L Hgb 11.8 L Hct 36.2 L MCV 87.0 MCH 28.4 MCHC 32.6 RDW 22.0 H Plt Count 259 MPV 10.2 Immature Gran % (Auto) 1.6 H Neut % (Auto) 68.2 Lymph % (Auto) 24.1 [place] % (Auto) 5.0 Eos % (Auto) 0.6 Baso % (Auto) 0.5 Lymph # (Auto) 2.01 [place] # (Auto) 0.4 Eos # (Auto) 0.1 Baso # (Auto) 0.0 Abs Immat Gran (auto) 0.13 H Absolute Neuts (auto) 5.7 Absolute Nucleated RBC 0.0 Nucleated RBC % 0.0 POC Capillary Glucose 59 L* Blood Type O Positive Antibody Screen Negative 04/27/22 03:38 WBC RBC Hgb 11.0 L Hct 33.6 L MCV MCH MCHC RDW Plt Count MPV Immature Gran % (Auto) Neut % (Auto) Lymph % (Auto) [place] % (Auto) Eos % (Auto) Baso % (Auto) Lymph # (Auto) [place] # (Auto) Eos # (Auto) Baso # (Auto) Abs Immat Gran (auto) Absolute Neuts (auto) Absolute Nucleated RBC Nucleated RBC % POC Capillary Glucose Blood Type Antibody Screen OB - PN A/P Plan day: 1 Plan: routine care Comments: Continue analgesia for pain control. Encourage ambulation. Routine care. Time Spent With Patient Time: Total time spent is greater than 50% in coordination of care (as documented) at patient's floor/unit and/or counseling patient: Exam Psych: Affect: normal affect Other: Abd: fundus firm below umbilicus, nontender Perineum: healing Ext: nontender
[2022-04-27] MEDS: DOCUSATE SODIUM 100 MG CAPSULE PO (09:12)
[2022-04-27] MEDS: MULTIVIT/MIN/PREN/FOL AC/IRON TABLET 1 TAB PO (09:12)
--- NOTE | 2022-04-27 09:28 | WPDANLDPN2 ---
Anes-Prog Note L&D Date/Time: 04/27/22 09:28 Neuro status: Neuro function grossly intact. Vital Signs: Last Vital Signs Temp 36.3 C L 04/27/22 08:20 Pulse 62 04/27/22 08:20 Resp 18 04/27/22 08:20 BP 99/60 L 04/27/22 08:20 Pulse Ox 100 04/27/22 08:20 O2 Del Method Room Air 04/27/22 03:59 Pain score (VAS): 2-4 c/o headache. able to walk and sit up in bed. Nursing baby at this time. Will go back to assess for pdph. I/O: Intake & Output 04/26/22 04/27/22 04/27/22 23:59 07:59 15:59 Intake Total 740 Output Total 105 Balance 635 Patient feedback: Patient satisfied with anesthetic care.
[2022-04-27 11:54] VITALS: BP 96/58; PULSE 65; RESP 16; TEMP 36.6; O2SAT 100
[2022-04-27 12:52] LABS: Rapid Plasma Reagin Non-Reactive (NonReactive)
--- NOTE | 2022-04-27 17:12 | PC.NURSE ---
1331 Anesthesia called to check on pt. She is doing well. 1446 pt calls out for pain meds and states she tried to get up nto the bathroom and could not her shoulders and across the back of her neck were giving her too much pain. Firocet and Ibuprofen given. 1504 in room for infants assessment. Pt stated her pain was not better. Told her it had only been 15 minutes give the meds a little bit longer to kick in. She V/U'd. 1645 Pt called out for help to the bathroom. Another RN went in to help. That RN stated the pt was crying in pain the whole time. 1658 Called Anesthesia and reported this. They said they evaluated her this morning and determined she was fine. They will not do a blood patch tonight. They will come back in the AM and evaluate her again.
--- NOTE | 2022-04-27 17:46 | PC.NURSE ---
1740 informed pt that anesthesia was contacted and told about her symptoms. They will come back in the AM to evaluate you again. She stated that the pain increases when she gets up. It is tolerable laying flat in bed. I instructed for her to drink more water and caffeinated drinks to help with this pain. She V/U'd.
[2022-04-27 19:52] VITALS: BP 104/59; PULSE 68; RESP 16; TEMP 36.7; O2SAT 99
[2022-04-28] MEDS: ACETAMINOPHEN/BUTALBITAL/CAFFEINE 325-50-40 MG TABLET (FIORICET) 1 TAB PO ×4 (04:18→19:37)
[2022-04-28 07:40] VITALS: BP 112/75; PULSE 70; RESP 16; TEMP 36.3; O2SAT 100
[2022-04-28 08:00] VITALS: PULSE 70; RESP 16; O2SAT 100
--- NOTE | 2022-04-28 08:23 | PM.OBPNVD ---
OB - PN: Subj Subjective Date/time seen: 04/28/22 08:23 Interval history: She still complains of the neck pain and headache. The pain is more on her right neck worse when she moves and stands up. Does not like to ambulate due to the pain. She was given Fioricet this morning the may have helped a little. Pain is the 8-9 it is better when she lays down she has been doing a ice pack and heating pad. Denies any numbness or tingling in her extremities. OB - PN: Obj Data Labs CBC & Chem 7: 04/27/22 03:38 Labs: Laboratory Results - last 24 hr 04/26/22 10:13 RPR Non-reactive OB - PN A/P Assessment and Plan (1) Headache: Code(s): R51.9 - Headache, unspecified Status: Acute Assessment and Plan: blood pressures normal, no signs of pre-eclampsia, may be muscle skeletal versus possible spinal. Anesthesia has been consulted. (2) Neck pain: Code(s): M54.2 - Cervicalgia Status: Acute Assessment and Plan: per above. We will give a trial of Flexeril. Continue heating pad. will consult physical therapy for possible neck strain if anesthesia feels it is not related to spinal headache. (3) Delivery normal: Code(s): O80 - Encounter for full-term uncomplicated delivery Status: Acute Time Spent With Patient Time: Total time spent is greater than 50% in coordination of care (as documented) at patient's floor/unit and/or counseling patient: Exam Const: General: awake and uncomfortable HENMT: Head: normocephalic Eyes: General: appearance normal, both eyes and all related structures Neck: Neck: normal visual inspection and other ( bilateral sternocleidomastoid spill tender right gr no abnormal swelling) GI: Inspection: normal to inspection ( nontender fundus -4 umbilicus) Skin: General skin exam: normal color Neuro: Other: normal strength in upper extremities , decreased range of motion when turning her head to the right Extrem: General: no calf tenderness Psych: Appearance: grossly normal
[2022-04-28] MEDS: MULTIVIT/MIN/PREN/FOL AC/IRON TABLET 1 TAB PO (08:33)
[2022-04-28] MEDS: DOCUSATE SODIUM 100 MG CAPSULE PO (08:33)
[2022-04-28] MEDS: IBUPROFEN 600 MG TABLET PO ×2 (08:35→15:36)
[2022-04-28] MEDS: CYCLOBENZAPRINE HCL 10 MG TABLET PO ×2 (11:11→20:19)
--- NOTE | 2022-04-28 12:17 | PC.NURSE ---
Primary RN reported to RN that mother has not attempted to breastfeed since delivery related to nausea and is bottle feeding her infant.
--- NOTE | 2022-04-28 16:32 | PM.OBDSVD ---
DS: Admitting Diagnosis Discharge Date 04/28/2022 Admitting Diagnosis Active labor DS: Discharge Diagnosis Discharge Diagnosis (1) Delivery normal: Code(s): O80 - Encounter for full-term uncomplicated delivery Status: Acute OB - DS: Summary Hospital Course Hospital Course: Patient was admitted in active labor. She had a uncomplicated vaginal delivery. On day 1. She had complained of a headache she was evaluated by anesthesia. She had normal blood pressures no signs or symptoms of preeclampsia. She complained the symptoms being mostly on the right back neck which radiates to her head. Feels like a band around her head. She had been given a heating pad to her lower back and her upper neck area. Was not ambulating much. She was recommended to try to increase ambulation. She was given Fioricet which she then stated her headaches were 2-3/10. Neck pain and headache increase when she starts walking. She was also tried on Flexeril. Again stated her last pain was 2/3/10. Lochia was decreasing. No leg pain. She was encouraged to ambulate. Encouraged to take Ibuprofen and continue heat pad. She was discharged to home on day 2. OB Procedures : Ultrasound OB Procedures Intrapartum: Spontaneous Vag Delivery OB Procedures: : None Time Spent with Patient Time attestation: Total time spent providing and/or coordinating discharge services: Discharge Plan Discharge Attending physician on discharge: Alyse Berkowitz Consulting providers: Kendal Truong Discharging Clinician: Paxton Carrasco Anticipated Discharge Date/Time: 04/28/22 16:16 Patient Disposition: Home, Self-Care Activity: may shower, no straining and pelvic rest Diet: regular Wound Care Instructions: follow printed instructions Discharge Instructions: Education: Mom and Baby Guide Given to: Mother Follow-Up: Call your delivering provider's office for an appointment to be seen in: 2 Weeks Mom and baby should come to the [facility] for the follow-up appointment. Appointment Date/Time: Friday, April 29, 2022 at 9:00 a.m. What to expect at your follow-up visit: Blood Pressure Check Physical Assessment Call [phone] if you are unable to keep your appointment time. BREAST CARE: * Wear a snug supportive bra. * For engorgement discomfort: Bottle Feeding: * May apply ice packs EPISIOTOMY/PERINEAL CARE: * Until bleeding stops, use your quan bottle after urinating * Change your pad frequently throughout the day * You may take sitz baths several times a day (fill your bathtub with warm water and soak for 20 minutes.) Do NOT bathe in the water * No tub baths until seen by your physician - You may shower ACTIVITY: * Rest as much as possible. * Do not exercise or lift anything heavier than your baby (such as laundry or other children.) * Avoid stairs or driving as much as possible. * Do not put anything into the vagina. No douching, tampons, or sexual activity until seen by physician. NOTIFY PHYSICIAN IF YOU HAVE ANY QUESTIONS OR IF ANY OF THE FOLLOWING SYMPTOMS OCCUR: * If your perineum becomes red, swollen, or more painful than what you have experienced in the hospital. * If your vaginal bleeding becomes foul smelling. * If your vaginal bleeding becomes more heavy than a period or if your bleeding changes from pink to bright red. However, you may pass an occasional walnut-sized clot once or twice for the first week . * If you experience a sharp, shooting pain in you calves. DIET: * Eat regular, well-balanced meals. * Drink plenty of fluids daily. Pelvic rest for 4-6 weeks. May take over the counter Ibuprofen for pain. Call if saturating more than a pad an hour, leg redness, pain and swelling, temperature>100.4. No strenuous activity. A daily vitamin. Stand Alone Forms: General Discharge Inform
[2022-04-28 19:45] VITALS: BP 114/76; PULSE 71; RESP 16; TEMP 36.8
--- NOTE | 2022-04-28 20:02 | PC.NURSE ---
1430-Patient was given the opportunity to view the discharge video Mother & Baby Care, The First Two Weeks and to ask questions. Patient declined viewing the video and has been given the mother/baby guide for home reference.
== END 2022-04-28 21:11 | disposition home or self-care (01) | DRG 807 ==
LOC: ANHLDR 09:37 → ANHOB2 04-28 16:32 → ANHLDR 04-29 10:08 → ANHOB2 04-29 10:08
PROVIDERS: Admitting Provider Student in an Organized Health Care Education/Training Program; PCP Internal Medicine; Visit Provider Obstetrics & Gynecology
DX: O99.214 Obesity complicating childbirth (principal); Z37.0 Single live birth; O69.82X0 Labor and delivery complicated by other cord entanglement, without compression, not applicable or unspecified; O71.82 Other specified trauma to perineum and vulva; Z3A.39 39 weeks gestation of pregnancy
CPT/HCPCS: 36415; 82948; 85014; 85018; 85025; 86592; 86850; 86900; 86901; A9270; J0834; J2590; J2795; J7120

== ENCOUNTER 2022-04-29 12:24 | Observation (INO) | payer OTHER, SELFPAY ==
[2022-04-29] VITALS (8 sets, daily range): BP systolic 106–113; BP diastolic 63–72; PULSE 64–74; RESP 18; TEMP 36.9; O2SAT 100
--- NOTE | 2022-04-29 13:27 | ED.HA ---
HPI - Headache General Chief Complaint: Headache Stated Complaint: needs blood patch Time Seen by Provider: 04/29/22 12:44 Source: patient Mode of arrival: ambulatory Limitations: no limitations History of Present Illness HPI Narrative: This is a 27-year-old female that presents to the emergency department for post epidural headache. Reports ever since her epidural for labor and delivery she has been having a frontal headache. It is worse with sitting and standing. It is now to the point where she is having difficulty caring for her children because it is so bothersome. She took Flexeril and Fioricet with little relief this morning. Presented to the emergency department for management of her headache. Denies vision changes, vomiting, numbness, or weakness. Related Data Home Medications Medication Instructions Recorded Confirmed docosahexaenoic acid 200 mg 200 mg PO DAILY 12/10/20 04/26/22 capsule ( DHA) Allergies Allergy/AdvReac Type Severity Reaction Status Date / Time No Known Allergies Allergy Verified 04/20/22 14:02 Review of Systems Review of Systems: EYES: Denies visual changes GASTROINTESTINAL: Denies vomiting NEUROLOGIC: Reports headache. Denies numbness, or weakness. All systems reviewed & are unremarkable except as noted in HPI and below PMFSH Past Medical History Medical History Anemia History of vaginal delivery 06/05/21 Obesity Family History Family History Other No pertinent family history Social History Social History Smoking status: Never smoker Second hand tobacco smoke exposure: No Alcohol intake: never Substance use: never Gender identity (if verbalized by the patient): Female Spiritual care concerns: No Exam Narrative: GENERAL: Well-appearing, well-nourished, and in no acute distress. HEAD: Normocephalic, atraumatic. EYES: PERRLA and EOMI. ENT: Nares clear, no rhinorrhea or epistaxis. Mucous membranes moist. Oropharynx without tonsillar hypertrophy exudate or other lesions. Bilateral TMs pearly cha non-bulging NECK: Supple. No adenopathy or masses. CHEST: Clear to auscultation. No respiratory distress. No wheezes rales or rhonchi HEART: Regular rate and rhythm. No murmur heard. Normal peripheral pulses. ABDOMEN: Soft, nontender, nondistended, normal active bowel sounds. EXTREMITIES: Normal range of motion. No edema. SKIN: Warm, dry, no rash. NEURO: No focal deficits. Alert and oriented x3. Cranial nerves II through XII grossly intact PSYCH: Normal mood and affect Course Vital Signs Vital signs: Vital Signs Pulse Rate 71 04/29/22 12:29 Respiratory Rate 18 04/29/22 12:29 Blood Pressure 106/72 04/29/22 12:29 Pulse Oximetry 100 04/29/22 12:29 Oxygen Delivery Room Air 04/29/22 12:29 Pulse Rate 71 04/29/22 12:29 Respiratory Rate 18 04/29/22 12:29 Blood Pressure 106/72 04/29/22 12:29 Pulse Oximetry 100 04/29/22 12:29 Oxygen Delivery Room Air 04/29/22 12:29 MDM - Headache MDM Narrative Medical decision making narrative: Patient presents to the emergency department for post epidural headache. Does seem consistent with this based on her history. She is afebrile nontoxic-appearing. She is neurologically intact. Called over to anesthesiology who reports she may be sent over to OB for further management of her headache with a blood patch Critical Care Time Critical Care Time Critical Care Time: No Discharge Plan Discharge Clinical Impression: Spinal headache complicating labor and delivery, delivered, Patient Disposition: Home, Self-Care Condition: Stable Instructions: Epidural Blood Patch (DC), Lumbar Puncture (ED) Additional Instructions: Presents to OB for further management of your headache Prescripti
--- NOTE | 2022-04-29 13:30 | PC.NURSE ---
Patient report called over to OB department. Per BRITNEY Parker, patient is to be taken to OB and per Klarissa RN okay to leave patient IV access in place. OB aware patient has IV access and [facility] ED technician chemical cleaning wheeled patient via wheelchair to OB.
--- NOTE | 2022-04-29 14:40 | WPDANESEBPP ---
Anes - Epidural Blood Patch PN Date/Time: 04/29/22 14:40 Consent: I have discussed with the patient/family/POA, the rationale of a lumbar epidural autologous blood patch for the treatment of post-dural puncture headache (spinal headache), including associated potential risks, benefits, complications and side effects. I have also discussed more conservative treatment options such as intravenous hydration, caffeine and non-prescription analgesics. The patient/family/POA, understand(s) and wish(es) to proceed with epidural autologous blood patch as treatment for the patient's post-dural puncture headache. Time-Out: A pre-procedural Time-Out was completed immediately before starting the procedure and confirmed: Patient Identification, Site, Procedure, Patient Position and the Availability of Requisite Equipment. Clinical Indications: dural puncture headache Epidural Insertion Note Patient position: sitting Skin prep: chlorhexidine Needle: 18 gauge Tuohy-Schliff Technique: loss of resistance Skin anesthesia: lidocaine 1% Observations: tolerated well Complications: none
--- NOTE | 2022-04-29 15:16 | PC.NURSE ---
Patient brought from ER already registered.
--- NOTE | 2022-05-23 08:37 | PM.OBTRLD ---
OB - Triage/Final Diagnosis Visit Information Comments/Additional reasons for admission: I have assessed the risk for this patient, David Puckett, and determined that she would benefit from observation care. Final Diagnosis (1) Spinal headache complicating labor and delivery, delivered, : Code(s): O74.5 - Spinal and epidural anesthesia-induced headache during labor and delivery Status: Acute
== END 2022-04-29 16:20 ==
LOC: ANHED 13:28 → ANHOBPP 13:46
PROVIDERS: Admitting Provider Obstetrics & Gynecology; Emergency Provider Emergency Medicine; PCP Internal Medicine; Visit Provider Obstetrics & Gynecology
DX: O89.4 Spinal and epidural anesthesia-induced headache during the puerperium (principal)
CPT/HCPCS: 62273; 99285; G0378; G0379

== ENCOUNTER 2025-05-23 10:55 | Outpatient (CLI) | payer OTHER, SELFPAY ==
--- NOTE | ~2025-05-23 | US_ITS ---
EXAMINATION: US OB <= 14 weeks fetus DATE: 05/23/2025 16:31 CDT INDICATION: Dating COMPARISON: None TECHNIQUE: Real-time transabdominal obstetric ultrasound. FINDINGS: 3 para 2 Estimated date of delivery by last menstrual period is 11/09/2025 The uterus measures 12.2 x 6.5 x 6.0 cm. A gestational sac is identified within the uterus. A pole is identified, with a crown-rump length that measures 3.1 cm, corresponding to an approx imate gestational age of 10 weeks and 0 days. cardiac activity is identified at a rate of 150 bpm. Despite prolonged interrogation, the right ovary was not visualized The left ovary measures 3.7 x 4.1 x 3.3 cm. Dopplerable flow is detected. Within the left ovary is a well-circumscribed anechoic avascular focus measuring 2.8 x 2.0 x 2.4 cm, consistent with a simple cyst (possibly a corpus luteal cyst) for which no further follow-up is neede d. Estimated date of delivery by ultrasound is 12/19/2025 IMPRESSION: Single intrauterine gestation with an approximate gestational age of 10 weeks and 0 days, with cardiac activity identified. Reviewed, dictated and finalized at location A. IMPRESSION: Single intrauterine gestation with an approximate gestational age of 10 weeks a nd 0 days, with cardiac activity identified.
== END 2025-05-23 10:56 | disposition home or self-care (01) ==
LOC: MICIMG 10:57
PROVIDERS: PCP Nurse Practitioner Obstetrics & Gynecology; Visit Provider Nurse Practitioner Family
DX: N91.2 Amenorrhea, unspecified (principal)
CPT/HCPCS: 76801